=== PATIENT | female | born 1955 | race Caucasian/White ===

== ENCOUNTER 2017-07-15 11:09 | Day surgery (SDC) | payer OTHER, SELFPAY ==
[~2017-07-15] VITALS: Ht 172.7 cm; Wt 67.2 kg
[~2017-07-15 11:09] MED LIST: BUPR150T2 PO; GABA300 PO; Hydrocodone-Ap1 EA23 PO; PARO10 PO; Venlafaxine HCl75 MG PO
== END 2017-07-15 12:50 | disposition home or self-care (01) ==
LOC: ORSCSDS 11:09
PROVIDERS: Internal Medicine Gastroenterology
PROC: 0DBE8ZX Excision of Large Intestine, Via Natural or Artificial Opening Endoscopic, Diagnostic (ICD-10-PCS; principal; 2017-07-15 12:30)
DX: Z12.11 Encounter for screening for malignant neoplasm of colon (principal); K64.8 Other hemorrhoids; Z86.010 Personal history of colon polyps; K21.9 Gastro-esophageal reflux disease without esophagitis; F41.8 Other specified anxiety disorders; F17.200 Nicotine dependence, unspecified, uncomplicated; Z79.899 Other long term (current) drug therapy
CPT/HCPCS: 88305

== ENCOUNTER 2020-05-26 13:48 | Emergency (ER) | payer MEDICARE ==
[~2020-05-26] VITALS: Ht 172.7 cm; Wt 62.6 kg
[2020-05-26] MEDS ORDERED: TRAZ50 (14:19)
[2020-05-26] MEDS ORDERED: BUSP5 PO (14:19)
[2020-05-26] MEDS ORDERED: AMOCLA875 PO (14:37)
[2020-05-26] MEDS ORDERED: HYDACE10B PO (14:37)
== END 2020-05-26 15:03 | disposition home or self-care (01) ==
LOC: ER 13:48
DX: S61.551A Open bite of right wrist, initial encounter (principal); Z79.899 Other long term (current) drug therapy; W55.01XA Bitten by cat, initial encounter
CPT/HCPCS: 96372; 99283-25; A9270; J1885

== ENCOUNTER 2020-09-27 06:15 | Day surgery (SDC) | payer MEDICARE ==
[~2020-09-27] VITALS: Ht 170.2 cm; Wt 64.2 kg
[~2020-09-27 06:15] MED LIST changes: +AMOCLA875 PO; +BUSP5 PO; +HYDACE10B PO; +TRAZ50
== END 2020-09-27 09:30 | disposition home or self-care (01) ==
LOC: ORSCSDS 06:15
PROVIDERS: Orthopaedic Surgery
PROC: 0JCM0ZZ Extirpation of Matter from Left Upper Leg Subcutaneous Tissue and Fascia, Open Approach (ICD-10-PCS; principal; 2020-09-27 07:30)
DX: M70.62 Trochanteric bursitis, left hip (principal); F41.8 Other specified anxiety disorders
CPT/HCPCS: 88305; A9270; J0171; J0690; J1100; J2250; J2370; J2405; J2704; J3010; J7120

== ENCOUNTER 2021-09-19 06:41 | Day surgery (SDC) | payer OTHER ==
[~2021-09-19] VITALS: Ht 170.2 cm; Wt 59.0 kg
--- NOTE | 2021-09-19 10:06 | NUR ---
09/19/21 1006 OLIVER ROQUE 25 MCG FENTANYL GIVEN AT 1001
--- NOTE | 2021-09-19 10:23 | NUR ---
09/19/21 1023 OLIVER ROQUE PT IN CHAIR MAKING JOKES LAUGHING, EATING CRACKER
== END 2021-09-19 10:30 | disposition home or self-care (01) ==
LOC: ORSCSDS 06:41
PROVIDERS: Orthopaedic Surgery
PROC: 0LX50ZZ Transfer Right Lower Arm and Wrist Tendon, Open Approach (ICD-10-PCS; principal; 2021-09-19 08:00)
PROC: 0RQU0ZZ Repair Right Metacarpophalangeal Joint, Open Approach (ICD-10-PCS; principal; 2021-09-19 08:00)
DX: M18.11 Unilateral primary osteoarthritis of first carpometacarpal joint, right hand (principal); F41.9 Anxiety disorder, unspecified; F32.A Depression, unspecified; Z79.899 Other long term (current) drug therapy; Z87.891 Personal history of nicotine dependence
CPT/HCPCS: A9270; C1713; J0690; J1100; J1885; J2250; J2405; J2704; J3010; J7120

== ENCOUNTER → 2023-01-06 | Outpatient (CLI) | payer OTHER ==
[2023-01-08 16:12] LABS: HPV 16 Negative (Negative); HPV 18 Negative (Negative); HPV OTHER HR TYPES Negative (Negative)
== END | disposition home or self-care (01) ==
LOC: LAB SHORT 14:03 → LAB 14:03
PROVIDERS: Advanced Practice Midwife
DX: Z01.419 Encounter for gynecological examination (general) (routine) without abnormal findings (principal)
CPT/HCPCS: 87624; G0145

== ENCOUNTER 2023-05-28 08:22 | Day surgery (SDC) | payer OTHER ==
[~2023-05-28] VITALS: Ht 170.2 cm; Wt 61.9 kg
[~2023-05-28 08:22] MED LIST changes: +AMBIEN5 MG PO; +BUSP10 PO; -BUSP5 PO; +HRT BASE TD; +HYDHCL25 PO; +LORCET 5-325 M1 EAC3; +PROG100 PO; +VENL75ER PO; +ZYRTEC10 M2 PO
[2023-05-28] MEDS ORDERED: CICLODAN6.6 ML TOP (09:05)
--- NOTE | 2023-05-28 13:51 | NUR ---
05/28/23 1351 RITA SCHROEDER PT SITTING UPRIGT IN RECLINER.
--- NOTE | 2023-05-28 14:12 | NUR ---
05/28/23 Muna Xie LATE ENTRY: 1055: SURGEON INFORMED OF PATIENT'S REPORT OF FUNGAL INFECTION TO L GREAT TOE THAT SHE IS CURRENTLY RECEIVING TOPICAL TREATMENT FOR. NO NEW ORDERS RECEIVED.
[2023-05-28 14:24] VITALS: BP 113/69
== END 2023-05-28 14:36 | disposition home or self-care (01) ==
LOC: ORSCSDS 08:22
PROVIDERS: Orthopaedic Surgery
PROC: 0RQT0ZZ Repair Left Carpometacarpal Joint, Open Approach (ICD-10-PCS; principal; 2023-05-28 10:30)
DX: M18.12 Unilateral primary osteoarthritis of first carpometacarpal joint, left hand (principal); Z79.899 Other long term (current) drug therapy
CPT/HCPCS: A9270; C1713; J0171; J0690; J1100; J2250; J2371; J2405; J2704; J2795; J3010; J7120